=== PATIENT | female | born 1945 | race Caucasian/White ===

== ENCOUNTER 2017-03-15 16:24 | Emergency (ER) | payer OTHER ==
--- NOTE | ~2017-03-15 | EKG ---
PATIENT: LUCY ALARCON UNIT #: [id number] Ventricular Rate: 80 BPM Atrial Rate: 80 BPM P-R Interval: 132 ms QRS Duration: 142 ms Q-T Interval: 494 ms QTC Calculation(Bezet): 569 ms P [place]: 45 degrees Calculated R [place]: -62 degrees Calculated T [place]: 87 degrees Diagnosis Line: Electronic ventricular pacemaker Diagnosis Line: No previous ECGs available Diagnosis Line: Confirmed by DANIAL MAN MD ([id number]) on Diagnosis Line: 04/09/2017 3:50:13 PM INTERPRETING MD: MAGDA CARVER
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
[~2017-03-15 16:24] MED LIST: ACTOS; ALLERGY10 M1 PO; ASPIRIN; BENTYL20 MG; CENTRUM PO; COREG6.25 MG PO; COUMADIN5 MG PO; LASIX PO; LISINOPRIL PO; METFORMIN HCL500 M1 PO; MULTAQ400 MG PO; NORVASC PO; PLAVIX; TOPROL XL; VICODIN 5/500 T1 TAB PO; VYTORIN 10/20 T1 TAB; ZOCOR PO
[2017-03-15] MEDS ORDERED: PLETAL100 M1 PO (16:36)
[2017-03-15 17:05] LABS: POC - CKMB <1.0 ng/mL (0.0-7.9); POC - TROPONIN <0.05 ng/mL (<=0.05)
[2017-03-15 17:28] LABS: BASOPHIL% 0.4 % (0-2.5); EOSINOPHIL# 0.1 X10e3 (0-0.7); HEMATOCRIT 40.2 % (35.0-45.0); HEMOGLOBIN 13.7 gm/dL (12.0-16.0); MEAN CELL VOLUME 84.9 FL (83-96); MEAN CORPUSCULAR HEMOGLOBIN 28.8 PG (28-34); MONOCYTE# 0.8 X10e3 (0-1.0); MONOCYTE% 11.3 % (3.0-12.0); NEUTROPHIL# 3.1 X10e3 (1.5-7.1); NEUTROPHIL% 44.3 % (40-75); PLATELET COUNT 186 X10e3 (140-420); RED BLOOD COUNT 4.74 X10e (3.90-5.30); RED CELL DISTRIBUTION WIDTH 13.6 % (11.0-15.5); WHITE BLOOD COUNT 6.9 X10e3 (4.0-10.5)
[2017-03-15 17:29] LABS: DIFF IND NO
[2017-03-15 17:36] LABS: PROTHROMBIN TIME (PATIENT) 34.7 SECONDS (9.5-12.4)
[2017-03-15 18:14] LABS: ALBUMIN SERUM 4.4 g/dL (3.5-5.0); BILIRUBIN, DIRECT 0.1 mg/dL (0.0-0.2); BILIRUBIN,INDIRECT 0.6 mg/dL (0.0-0.9); BILIRUBIN,TOTAL 0.7 mg/dL (0.2-2.0); BUN/CREATININE RATIO 18.75; CREATININE SERUM 0.8 mg/dL (0.6-1.4); GLOM FILT RATE Estimated 73.2 mL/min (>60); PROTEIN TOTAL SERUM 7.7 g/dL (6.0-8.3)
[2017-03-15 18:15] LABS: POTASSIUM 2.7 mmol/L (3.5-5.1)
[2017-03-15 19:03] LABS: URINE SOURCE CLEAN CATCH
[2017-03-15 19:06] LABS: URINE APPEARANCE CLEAR; URINE BILIRUBIN NEG (NEG); URINE BLOOD NEG (NEG); URINE COLOR YELLOW; URINE GLUCOSE 100 MG/DL (NORM); URINE KETONE NEG (NEG); URINE LEUKOCYTE ESTERASE NEG (NEG); URINE NITRATE NEG (NEG); URINE PROTEIN NEG (NEG); URINE SPECIFIC GRAVITY 1.015 (1.003-1.035); URINE UROBILINOGEN 0.2 MG/DL (NORM)
[2017-03-15 19:07] LABS: MICRO INDICATED? NO
[2017-03-15 19:49] LABS: POC - CKMB 1.2 ng/mL (0.0-7.9); POC - TROPONIN 0.16 ng/mL (<=0.05)
== END 2017-03-15 21:59 ==
LOC: SED 16:24
PROVIDERS: Emergency Medicine
DX: R55 Syncope and collapse (principal); E11.65 Type 2 diabetes mellitus with hyperglycemia; E87.6 Hypokalemia; I10 Essential (primary) hypertension; Z88.8 Allergy status to other drugs, medicaments and biological substances; Z79.899 Other long term (current) drug therapy
CPT/HCPCS: 36415; 70450; 71010; 80048; 80076; 81003; 82553; 84484; 85025; 85610; 93005; 96361; 96365; 96375; 99285; J2405